=== PATIENT | male | born 1995 | race Caucasian/White ===

== ENCOUNTER 2017-02-05 17:30 | Emergency (ER) | payer MEDICAID, OTHER ==
[~2017-02-05] VITALS: Ht 170.2 cm; Wt 64.5 kg
[2017-02-05] MEDS ORDERED: DIPH,PERTUSS(ACELL),TET VAC/PF 0.5 ML IM-VACC ONE ×2 (17:44→18:00)
[2017-02-05] MEDS ORDERED: LIDOCAINE 1%, 20ML ONE (17:44)
[2017-02-05 17:56] VITALS: BP 112/69
[2017-02-05] MEDS ORDERED: TRAZ50TA18 PO (18:00)
[2017-02-05] MEDS ORDERED: LIDOCAINE 1%, 20ML SQ ONE (18:00)
[2017-02-05] MEDS ORDERED: ALPR-475 PO (18:00)
[2017-02-05] MEDS ORDERED: PLEASE ENTER HEIGHT AND WEIGHT MC SCH (18:00)
== END 2017-02-05 18:36 | disposition home or self-care (01) ==
LOC: ED 18:30
DX: S61.211A Laceration without foreign body of left index finger without damage to nail, initial encounter (principal); X58.XXXA Exposure to other specified factors, initial encounter; Y93.89 Activity, other specified; Y92.488 Other paved roadways as the place of occurrence of the external cause; Y99.8 Other external cause status
CPT/HCPCS: 12001; 90471; 90715; 99283; J3490

== ENCOUNTER 2021-02-24 04:29 | Emergency (ER) | payer MEDICAID ==
[~2021-02-24] VITALS: Ht 172.7 cm; Wt 72.0 kg
[~2021-02-24 04:29] MED LIST: ALPR0.5T7 PO; TRAZ50TA66 PO
[2021-02-24 04:31] VITALS: BP 130/86
[2021-02-24] MEDS ORDERED: LIDOCAINE-MPF 1%, 5ML ONE (05:20)
[2021-02-24] MEDS ORDERED: LIDOCAINE-MPF 1%, 5ML INFIL ONE (05:30)
[2021-02-24] MEDS ORDERED: BACITRACIN ZINC OINT 500U/GM, 0.9 GM ONE (06:28)
--- NOTE | 2021-02-24 06:36 | NUR ---
Patient given discharge instructions and they have confirmed that they understand the instructions. Patient ambulatory with steady gait. NAD, all questions answered appropriately, denies additional needs at this time. No personal belongings left in room after discharge.
== END 2021-02-24 06:43 | disposition home or self-care (01) ==
LOC: ED 06:30
DX: S61.214A Laceration without foreign body of right ring finger without damage to nail, initial encounter (principal); Z87.891 Personal history of nicotine dependence; X58.XXXA Exposure to other specified factors, initial encounter; Y93.89 Activity, other specified; Y92.009 Unspecified place in unspecified non-institutional (private) residence as the place of occurrence of the external cause; Y99.8 Other external cause status
CPT/HCPCS: 12001; 99283